=== PATIENT | female | born 1945 | race Caucasian/White ===

== ENCOUNTER 2018-11-21 08:42 | Day surgery (SDC) | payer MEDICARE ==
[2018-11-17 15:49] VITALS: BMI 24.1
[~2018-11-21 08:42] MED LIST: LACTATED RINGERS 1,000 ML IV SCH; LIDOCAINE 1% 20 ML VIAL (10MG/ML) FOR IV START INTRADERMA PRN
[2018-11-21 09:10] VITALS: TEMP 97.8
[2018-11-21] MEDS ORDERED: PROPOFOL 10 MG/ML 20 ML VIAL IV ONE (10:18)
[2018-11-21] MEDS ORDERED: MIDAZOLAM 2 MG/2 ML VIAL ONE (10:18)
--- NOTE | 2018-11-21 10:49 | P.PCN ---
Date of Procedure: 11/21/18 Description of Procedure: BRIEF HISTORY: Patient is a 73-year-old pleasant female scheduled for an elective colonoscopy as a part of surveillance for malignant neoplasm of the colon. Denies any change in bowel habits, blood per rectum, abdominal pain or family history of colon cancer. Last colonoscopy 12 years ago. PROCEDURE PERFORMED: Colonoscopy. PREOPERATIVE DIAGNOSIS: Screening for malignant neoplasm of the colon. ESTIMATED BLOOD LOSS: Minimal. IV sedation per Anesthesia. PROCEDURE: After informed consent was obtained, the patient, was brought into the endoscopy unit. IV sedation was administered by Anesthesia under continuous monitoring. Digital rectal examination was normal. Initially the Olympus CF-190 flexible video colonoscope was then inserted in the rectum, gradually advanced into the cecum without any difficulty. Careful examination was performed as the scope was gradually being withdrawn. Ileocecal valve and the appendiceal orifice were visualized and appeared normal. Prep was excellent. Mucosa of the cecum, ascending colon, transverse colon, descending colon, sigmoid colon, and rectum appeared normal. A few small and large diverticula in the left colon consistent with mild diverticulosis. Retroflexion was performed in the rectum and no lesions were seen, internal hemorrhoids noted. The patient tolerated the procedure well. IMPRESSION: Normal-appearing colon from rectum to cecum. Mild left-sided diverticulosis. RECOMMENDATIONS: Findings of this examination were discussed with the patient and her . Okay to resume high-fiber diet. Okay to resume medications.
[2018-11-21 11:03] VITALS: BP 122/78; PULSE 76; RESP 18
== END 2018-11-21 11:20 | disposition home or self-care (01) ==
LOC: ORWHC2ENDO 08:42
PROVIDERS: ATTEND Internal Medicine
DX: Z12.11 Encounter for screening for malignant neoplasm of colon (principal); K57.30 Diverticulosis of large intestine without perforation or abscess without bleeding; K64.8 Other hemorrhoids; Z88.2 Allergy status to sulfonamides; E78.5 Hyperlipidemia, unspecified; G43.909 Migraine, unspecified, not intractable, without status migrainosus; Z79.891 Long term (current) use of opiate analgesic; Z79.899 Other long term (current) drug therapy
CPT/HCPCS: J2250; J2704; G0121

== ENCOUNTER → 2018-12-04 | Outpatient (CLI) | payer MEDICARE ==
--- NOTE | 2018-12-04 20:09 | BD ---
EXAMINATION TYPE: Axial Bone Density DATE OF EXAM: 12/04/2018 COMPARISON: 10/24/2015 CLINICAL HISTORY: 73-year-old female osteoporosis Height: 60.5 IN Weight: 134 LBS FRAX RISK QUESTIONS: Secondary Osteoporosis: 3. Menopause before 45: YES TOTAL HYST AGE 37 RISK FACTORS HISTORY OF: Active: YES Diet low in dairy products/other sources of calcium: YES Postmenopausal woman: TOTAL HYST AGE 37 Take estrogen and/or progesterone medications: NOT NOW How long: AGE 36-55 MEDICATIONS: Osteoporosis Medications: YES Which medication: Fosamax How Lon YEARS Additional Medications: FOSAMAX, CALCIUM, VIT D, SIMVASTATIN, EXAM MEASUREMENTS: Bone mineral densitometry was performed using the [employer] System. Bone mineral density as measured about the Lumbar spine is: ----- L1-L4(G/cm2): 0.988 T Score Values are as follows: ----- L2: -1.5 ----- L3: -1.2 ----- L4: -1.7 ----- L1-L4: -1.6 Bone mineral density has: Decreased -1.3% since study of: 10/24/2015 Bone mineral density about the R hip (g/cm2): 0.645 Bone mineral density about the L hip (g/cm2): 0.664 T Score values are as follows: -----R Neck: -2.8 -----L Neck: -2.7 -----R Total: -1.9 -----L Total: -2.1 Bone mineral density has: Decreased -4.2% since study of: 10/24/2015 IMPRESSION: Osteoporosis (T Score less than -2.5). There is increased fracture risk and therapy is usually indicated based on age. Re-Screen 1-2 years. NOTE: T-SCORE=SD OF THE YOUNG ADULT MEAN.
--- NOTE | 2018-12-05 10:12 | MM ---
Reason for exam: screening (asymptomatic). Last mammogram was performed 3 years and 1 month ago. History: Patient is postmenopausal. Family history of breast cancer in maternal aunt. Took estrogen for 19 years beginning at age 37. Physical Findings: A clinical breast exam by your physician is recommended on an annual basis and results should be correlated with mammographic findings. MG 3D Screening Mammo W/Cad Bilateral CC and MLO view(s) were taken. Prior study comparison: October 24, 2015, bilateral MG 3d screening mammo w/cad. January 29, 2013, bilateral digital screening mammo w/CAD. The breast tissue is heterogeneously dense. This may lower the sensitivity of mammography. Benign appearing bilateral calcifications. No suspicious abnormality. No significant changes when compared with prior studies. ASSESSMENT: Benign, BI-RAD 2 RECOMMENDATION: Routine screening mammogram of both breasts in 1 year.
== END | disposition home or self-care (01) ==
LOC: RADMAMWWP 09:15
PROVIDERS: ATTEND Family Medicine
DX: Z12.31 Encounter for screening mammogram for malignant neoplasm of breast (principal); M81.0 Age-related osteoporosis without current pathological fracture
CPT/HCPCS: 77063; 77067; 77080

== ENCOUNTER → 2021-05-13 | Outpatient (CLI) | payer MEDICARE ==
--- NOTE | 2021-05-13 09:47 | MM ---
Reason for exam: screening (asymptomatic). Last mammogram was performed 2 years and 5 months ago. History: Patient is postmenopausal. Family history of breast cancer in maternal aunt. Took estrogen for 19 years beginning at age 37. Physical Findings: A clinical breast exam by your physician is recommended on an annual basis and results should be correlated with mammographic findings. MG 3D Screening Mammo W/Cad Bilateral CC and MLO view(s) were taken. Prior study comparison: December 04, 2018, bilateral MG 3d screening mammo w/cad. October 24, 2015, bilateral MG 3d screening mammo w/cad. The breast tissue is heterogeneously dense. This may lower the sensitivity of mammography. Stable vascular calcifications. There is no discrete abnormality. No significant changes when compared with prior studies. ASSESSMENT: Benign, BI-RAD 2 RECOMMENDATION: Routine screening mammogram of both breasts in 1 year.
--- NOTE | 2021-05-13 10:53 | BD ---
EXAMINATION TYPE: Axial Bone Density DATE OF EXAM: 05/13/2021 COMPARISON: 12/04/2018 CLINICAL HISTORY: Height: 60.5 IN Weight: 137 LBS FRAX RISK QUESTIONS: History of Fracture in Adulthood: RT ANKLE AGE 61 Secondary Osteoporosis: 3. Menopause before 45: TOTAL HYST AGE 37 RISK FACTORS HISTORY OF: Active: YES Diet low in dairy products/other sources of calcium: YES Postmenopausal woman: TOAL HYST AGE 37 Take estrogen and/or progesterone medications: PREMARIN CREAM FOR 4 YEARS How long: ERT PREVIOUSLY FOR 10 YEARS MEDICATIONS: Osteoporosis Medications: YES Which medication: Prolia FOSAMAX How Lon YEARS Additional Medications: CALCIUM, VIT D, PREMARIN CREAM, SIMVASTATIN, EXAM MEASUREMENTS: Bone mineral densitometry was performed using the [employer]. Bone mineral density as measured about the Lumbar spine is: ----- L1-L4(G/cm2): 1.050 T Score Values are as follows: ----- L2: -1.5 ----- L3: -1.2 ----- L4: -0.8 ----- L1-L4: -1.1 Bone mineral density has: Increased 4.4% since study of: 12/04/2018 Bone mineral density about the R hip (g/cm2): 0.612 Bone mineral density about the L hip (g/cm2): 0.657 T Score values are as follows: -----R Neck: -3.1 -----L Neck: -2.7 -----R Total: -2.0 -----L Total: -2.0 Bone mineral density has: Increased 0.7% since study of: 12/04/2018 IMPRESSION: Osteopenia NOTE: T-SCORE=SD OF THE YOUNG ADULT MEAN.
== END ==
LOC: RADBDWWP 08:14
PROVIDERS: ATTEND Family Medicine
DX: Z12.31 Encounter for screening mammogram for malignant neoplasm of breast (principal); M81.0 Age-related osteoporosis without current pathological fracture; Z78.0 Asymptomatic menopausal state; Z80.3 Family history of malignant neoplasm of breast
CPT/HCPCS: 77063; 77067; 77080

== ENCOUNTER → 2023-09-09 | Outpatient (CLI) | payer MEDICARE ==
--- NOTE | 2023-09-10 19:08 | BD ---
EXAMINATION TYPE: Axial Bone Density DATE OF EXAM: 09/09/2023 CLINICAL HISTORY: 78 years old Female. ICD-10 CODE: M81.0 OSTEOPOROSIS Height: 61 Weight: 136 FRAX RISK QUESTIONS: Family History (Parent hip fracture): no History of Fracture in Adulthood: yes Secondary Osteoporosis: yes 3. Menopause before 45: yes RISK FACTORS HISTORY OF: Surgery to Spine/Hip(right/left)/Wrist (right/left): no MEDICATIONS: Thyroid Medications: no Osteoporosis Medications: yes Which medication: Prolia How Lon years EXAM MEASUREMENTS: Bone mineral densitometry was performed using the [employer] System. Bone mineral density as measured about the Lumbar spine is: ----- L1-L4(G/cm2): 1.133 T Score Values are as follows: ----- L1: -0.7 ----- L2: -0.6 ----- L3: -0.2 ----- L4: -0.2 ----- L1-L4: -0.4 Z Score Values are as follows: ----- L1: 1.2 ----- L2: 1.3 ----- L3: 1.7 ----- L4: 1.7 ----- L1-L4: 1.5 Bone mineral density has: Increased 7.9% since study of: 05-13-2021 Bone mineral density about the R hip (g/cm2): 0.783 Bone mineral density about the L hip (g/cm2): 0.755 T Score values are as follows: -----R Neck: -2.9 -----L Neck: -2.8 -----R Total: -1.8 -----L Total: -2.0 Z Score values are as follows: -----R Neck: -0.8 -----L Neck: -0.7 -----R Total: 0.2 -----L Total: -0.1 Bone mineral density has: Increased 1.7% since study of: 05-13-2021 FRAX%s: The graph provided illustrates a 31.6% chance for a major osteoporotic fx and a 11.8% chance for the hips probability for fx in 10 years time. IMPRESSION: Osteoporosis (T Score less than -2.5). There is increased fracture risk and therapy is usually indicated based on age. Re-Screen 1-2 years. NOTE: T-SCORE=SD OF THE YOUNG ADULT MEAN.
--- NOTE | 2023-09-13 09:08 | MM ---
Reason for Exam: Screening (asymptomatic). Last mammogram was performed 2 year(s) and 3 month(s) ago. Patient History: Menarche at age 15. First Full-Term at age 23. Left ovary removed at age 37. Right ovary removed at age 37. Hysterectomy at age 37. Postmenopausal. Estrogen for 19 years from age 37 until age 56. Maternal aunt had breast cancer, age 72. Risk Values: Chyna 5 year model risk: 1.4%. NCI Lifetime model risk: 2.7%. Prior Study Comparison: 10/24/2015 Bilateral Screening Mammogram, [facility]. 12/04/2018 Bilateral Screening Mammogram, [facility]. 05/13/2021 Bilateral Screening Mammogram, [facility]. Tissue Density: The breasts are heterogeneously dense, which may obscure small masses. Findings: Analyzed By CAD. There is no suspicious group of microcalcifications or new suspicious mass in either breast. Benign calcifications noted. Overall Assessment: Benign, BI-RAD 2 Management: Screening Mammogram of both breasts in 1 year. . Patient should continue monthly self-breast exams. A clinical breast exam by your physician is recommended on an annual basis. This exam should not preclude additional follow-up of suspicious palpable abnormalities. Note on Chyna scores and lifetime risk: 1. A Chyna score greater than 3% is considered moderate risk. If this is the case, consider specialist referral to assess eligibility for a risk reducing agent. 2. If overall lifetime risk for the development of breast cancer is 20% or higher, the patient may qualify for future screening with alternating mammogram and breast MRI. Electronically signed and approved by: Wiley Gutierrez M.D. Radiologis
== END | disposition home or self-care (01) ==
LOC: RADMAMWWP 13:01
PROVIDERS: ATTEND Family Medicine
DX: Z12.31 Encounter for screening mammogram for malignant neoplasm of breast (principal); M81.0 Age-related osteoporosis without current pathological fracture; M85.89 Other specified disorders of bone density and structure, multiple sites; Z78.0 Asymptomatic menopausal state; Z80.3 Family history of malignant neoplasm of breast
CPT/HCPCS: 77063; 77067; 77080